=== PATIENT | female | born 1985 | race American Indian/Alaskan Native ===

== ENCOUNTER 2021-04-13 15:28 | Emergency (ER) | payer MEDICAID ==
[2021-04-13 15:49] VITALS: BP 146/96
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
[2021-04-13 17:11] LABS: HCG Qualitative,Urine Negative (Negative)
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
== END 2021-04-13 18:10 | disposition home or self-care (01) ==
LOC: ED 15:28
DX: M79.602 Pain in left arm (principal); M54.2 Cervicalgia; J34.89 Other specified disorders of nose and nasal sinuses; I10 Essential (primary) hypertension; Z79.899 Other long term (current) drug therapy; Y04.2XXA Assault by strike against or bumped into by another person, initial encounter; Y93.89 Activity, other specified; Y92.89 Other specified places as the place of occurrence of the external cause; Y99.8 Other external cause status
CPT/HCPCS: 70486; 81025